=== PATIENT | female | born 1990 | race Hispanic/Latino ===

== ENCOUNTER 2018-04-09 16:28 | Emergency (ER) | payer SELFPAY ==
[2018-04-09 16:30] VITALS: BP 127/77; PULSE 66; RESP 18; TEMP 35.9; O2SAT 99; BMI 29.0
[2018-04-09] MEDS: 0.9% Normal Saline 1,000 ML 150 ML IV (17:15)
[2018-04-09] MEDS: Mag Hydrox/Al Hydrox/Simeth 30 ML UDC PO (17:15)
--- NOTE | 2018-04-09 17:16 | ED.DCSUM_ITS ---
- ER Visit Summary Date of Service: 04/09/18 Chief Complaint: Abdominal pain, nausea History of Present Illness: The patient is a 27 F with left upper quadrant abdominal pain for the past 3 days. She describes it as a burning sensation with increased burning in her throat. She reports nausea with a single episode of vomiting. She reports a history of a ulcer in the past, diagnosed in the ER. At that time she had taken Pepcid. She tried taking it again over the past few days with minimal improvement. She denies fever or chills. Physical Examination: Vital signs unremarkable. Patient sitting upright in bed no acute distress. Heart is regular rate and rhythm. Lung sounds clear. Abdomen is soft with tenderness in the epigastric region. Hypoactive bowel sounds are noted. There is no guarding or rebound. Test Results: CBC and chemistry studies unremarkable. LFTs and lipase normal. test negative. Emergency Department Course and Treatment: Patient was given a GI cocktail. On repeat evaluation she does feel improved. She will be given a short course of Prilosec and referred to establish a primary care physician. Treatment Plan: [] Disposition: Discharge Impression: GERD This note was generated with [employer] dictation software. It may contain incorrect words, spelling, and punctuation that were not noted in review of the chart prior to signing ED Disposition - Plan for ED Patient: Chief Complaint: Abd Pain Referrals: Care Physician,No Primary [Primary Care Provider] -
[2018-04-09 17:50] LABS: Absolute Lymphocyte Count 2.88 X10^3/ul (0.83-4.51); Basophil# 0.01 X10^3/uL; Basophil% 0.1 % (0-1); Eosinophils% 4.6 % (0-5); Hematocrit 39.8 % (37-47); Hemoglobin 12.8 g/dl (12.0-15.0); Lymphocyte # 2.88 X10^3/ul (4.0); Lymphocyte % 33.1 % (19-41); Mean Corp Hgb Conc 32.2 g/gl (32-36); Mean Corpuscular Hgb 28.6 pg (27.0-32.0); Mean Corpuscular Volume 88.8 fL (81-99); Monocyte# 0.44 X10^3/uL; Monocyte% 5.1 % (0-10); Neutrophil # 4.96 X10^3/uL (2.7-7.7); Neutrophil % 56.9 % (47-70); POSITIVE COUNT NO; POSITIVE DIFFERENTIAL NO; POSITIVE MORPHOLOGY NO; Platelet Count 275 K/mm3 (150-450); RBC Distribution Width CV 13.4 % (11.6-14.6); RBC Distribution Width SD 43.3 fl (35.1-43.9); Red Blood Count 4.48 M/mm3 (4.2-5.4); White Blood Count 8.7 K/mm3 (4.4-11.0)
[2018-04-09 18:06] LABS: AST(SGOT) 16 U/L (15-37); Alanine Aminotransfer ALT/SGPT 27 U/L (13-56); Albumin, Serum 3.6 g/dL (3.2-5.0); Alkaline Phosphatase 67 U/L (45-117); Anion Gap 8 (5-15); BUN 8 mg/dL (7-18); BUN/Creat Ratio 13.2 RATIO (10-20); Bilirubin, Direct 0.07 mg/dL (0.00-0.30); Calcium,Total 8.7 mg/dL (8.5-10.1); Chloride 108 mmol/L (98-107); Creatinine, Serum 0.61 mg/dL (0.55-1.02); EST Glomerular Filtration Rate 126 mL/min (>60); Est Glom Filt Rate - Afr Amer 152 mL/min (>60); Estimated Creatinine Clearance 120.68 ml/min; Globulin 4.3 g/dL (2.2-4.2); Glucose 95 mg/dL (74-106); Lipase 83 U/L (73-393); Potassium 3.6 mmol/L (3.5-5.1); Protein, Total 7.9 g/dL (6.4-8.2); Sodium Level 141 mmol/L (136-145)
[2018-04-09 18:08] LABS: Pregnancy, Serum, hCG Quali. NEGATIVE Negative (0-9 Nonpreg)
--- NOTE | 2018-04-09 18:44 | ED.DEP ---
ED Disposition - Plan for ED Patient: Disposition: Home or Assisted Living Chief Complaint: Abd Pain Instructions: ED GERD Prescriptions: Omeprazole [Prilosec] 20 mg PO DAILY #14 capsule Referrals: Keith Lugo DO [STAFF PHYSICIAN] - As Needed
[2018-04-09 18:54] VITALS: BP 110/81; PULSE 65; RESP 16; O2SAT 99
== END 2018-04-09 18:57 | disposition home or self-care (01) ==
PROVIDERS: Emergency Provider Emergency Medicine
DX: K21.9 Gastro-esophageal reflux disease without esophagitis (principal); E28.2 Polycystic ovarian syndrome
CPT/HCPCS: 80048; 80076; 83690; 84703; 85025; 96361; 96374; 99285; J7030; A4216